=== PATIENT | male | born 1990 | race Caucasian/White ===

== ENCOUNTER 2020-05-12 15:27 | Outpatient (CLI) | payer OTHER ==
--- NOTE | 2020-05-12 17:31 | MRI Report ---
PROCEDURE: Wrist RT W/O INDICATIONS: BILATERAL WRIST PAIN TECHNIQUE: Noncontrast coronal proton density fast spin echo and T2 fast spin echo with fat saturation; coronal 3-D gradient echo, axial T1 spin echo and T2 fast spin echo with fat saturation, sagittal T1 spin ech o through the wrist. COMPARISON: None. FINDINGS: Image quality: Excellent. Bones and cartilage: The carpal bones are normally aligned. No bone marrow contusions or fractures. No evidence for avascular necrosis. Overlying cartilage surfaces appear normal. Carpal ligaments: The scapholunate and lunotriquetral ligaments appear intact. In the absence of in tra-articular contrast, the extrinsic carpal ligaments are not well identified. On sagittal images, the pisohamate ligament appears intact. Triangular fibrocartilage complex: The triangular fibrocartilage appears intact. The adjacent menis sonia homolog appears normal in the absence of intra-articular contrast. The extensor carpi ulnaris te ndon is normal in location and morphology. Tendons and soft tissues: The carpal tunnel structures appear normal, including the median nerve. T he ulnar nerve appears normal within Guyon?s canal. There is suggestion of low-grade tendinosis invol ving extensor pollicis brevis tendon and abductor pollicis longus tendon at the level of radial stylo id. Rest of the extensor tendon compartments demonstrate normal morphology, without pathologic tendon sheath fluid. No soft tissue ganglion cysts. IMPRESSION: 1. Suggestion of low-grade tendinosis involving extensor pollicis brevis tendon and abductor pollicis longus tendon at the level of radial styloid. No evidence of wrist tendon rupture. 2. Intrinsic and extrinsic wrist ligaments are grossly intact. 3. No gross focal irregular fibrocartilage tear. 4. No marrow edema. No fracture or dislocation. Reviewed by: Meek Bull MD on 05/12/2020 5:29 PM PST Approved by: Meek Bull MD on 05/12/2020 5:29 PM PST Station ID: [id number]
--- NOTE | 2020-05-12 17:33 | MRI Report ---
PROCEDURE: Wrist LT W/O INDICATIONS: BILATERAL WRIST PAIN TECHNIQUE: Noncontrast coronal proton density fast spin echo and T2 fast spin echo with fat saturation; coronal 3-D gradient echo, axial T1 spin echo and T2 fast spin echo with fat saturation, sagittal T1 spin ech o through the wrist. COMPARISON: None. FINDINGS: Image quality: Excellent. Bones and cartilage: Ulnar carpal joint space narrowing is seen. Nonspecific subcortical cyst formati on in proximal triquetrum is also noted. No bone marrow contusions or fractures. No evidence for sweta scular necrosis. Overlying cartilage surfaces appear normal. Carpal ligaments: The scapholunate and lunotriquetral ligaments appear intact. In the absence of in tra-articular contrast, the extrinsic carpal ligaments are not well identified. On sagittal images, the pisohamate ligament appears intact. Triangular fibrocartilage complex: There is suggestion of irregular fibrocartilage tear near its ulna r insertion. The adjacent meniscal homolog appears normal in the absence of intra-articular contrast. The extensor carpi ulnaris tendon is normal in location and morphology. Tendons and soft tissues: The carpal tunnel structures appear normal, including the median nerve. T he ulnar nerve appears normal within Guyon?s canal. All six extensor tendon compartments demonstrate normal morphology, without pathologic tendon sheath fluid. No soft tissue ganglion cysts. IMPRESSION: 1. 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 No fracture or dislocation. 2. Suggestion of triangular fibrocartilage tear near its ulnar insertion. 3. Wrist tendons are grossly intact. Intrinsic and extrinsic wrist ligaments are grossly intact. Reviewed by: Meek Bull MD on 05/12/2020 5:32 PM PST Approved by: Meek Bull MD on 05/12/2020 5:32 PM PST Station ID: [id number]
== END 2020-05-12 15:28 | disposition home or self-care (01) ==
LOC: DI 15:27
PROVIDERS: ATTEND Student in an Organized Health Care Education/Training Program
DX: M19.032 Primary osteoarthritis, left wrist (principal); M67.833 Other specified disorders of tendon, right wrist